=== PATIENT | female | born 1960 | race Caucasian/White ===

== ENCOUNTER 2019-06-09 15:32 | Emergency (ER) | payer OTHER ==
[~2019-06-09] VITALS: Ht 165.1 cm; Wt 97.5 kg
[2019-06-09] MEDS ORDERED: ASPIR 8181 MG ORAL (15:41)
--- NOTE | 2019-06-09 16:06 | Emergency Room Report ---
History of Present Illness General Chief Complaint: Chest Pain Source: Patient Present Illness HPI Disclaimer: Please note that this report is being documented using [employer] technology. This can lead to erroneous entry secondary to incorrect interpretation by the dictating instrument. HPI: 59-year-old female reported history of hypertension previous cardiac stent placement presents for chest pain, urinary frequency and diarrhea. Symptoms present for the past 2 to 3 days. Chest pain pain is pressure-like, nonradiating, about 8 out of 10. She denies fever or cough. She denies sick contacts. She has a history of coronary artery stent placement 3 years ago. She also complains of back pain that is bilateral in the flanks., And nonradiating. She denied dysuria but complained of urinary frequency as well. PMH: Hypertension, coronary artery disease PSH: Reviewed Social Hx: She denies smoking drinking or illicit drug use Allergies: Coded Allergies: No Known Allergies (Unverified , 06/09/19) COVID-19 Screening Contact w/high risk pt: No Recent Travel to affected area: No Experienced COVID-19 symptoms?: Yes COVID-19 symptoms experienced: Shortness of Breath Patient History Now: No : 1 Para: 1 Reviewed Nursing Documentation: PMH: Agreed; PSxH: Agreed Nursing Documentation-PMH Past Medical History: No History, Except For Hx Cardiac Problems: Yes - stent 2016 Review of Systems All Other Systems: negative except mentioned in HPI Physical Exam Vital Signs Date Time Temp Pulse Resp B/P (MAP) Pulse Ox O2 Delivery O2 Flow Rate FiO2 06/09/19 15:37 97.9 74 18 164/90 (114) 95 Room Air Sp02 EP Interpretation: reviewed, normal General Appearance: well appearing, no apparent distress Head: normocephalic, atraumatic Eyes: bilateral eye PERRL, bilateral eye EOMI ENT: hearing grossly normal, moist mucus membranes Neck: full range of motion, supple Respiratory: lungs clear, normal breath sounds, no rhonchi, no respiratory distress, no retraction, no wheezing Cardiovascular #1: normal peripheral pulses, regular rate, rhythm, no murmur Gastrointestinal: non tender, soft, non-distended, no guarding Genitourinary: CVA tenderness (R), CVA tenderness (L) Neurologic: alert, oriented x3, no focal defects Skin: normal color, warm/dry Medical Decision Making Diagnostic Impression: Primary Impression: Back pain Additional Impressions: UTI (urinary tract infection) Chest pain ER Course MDM: Patient presents for complaints of chest pain, shortness of breath, flank pain, urinary frequency and diarrhea. differential diagnosis: Differential included pneumonia viral syndrome ACS CHF UTI pyelonephritis to name a few Clinical course Patient placed on stretcher. 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 After initial history and physical I ordered labs, IV fluids, analgesics, and urinalysis. After pain control patient feeling improved. She does have a cardiac history. She was in no distress. Her troponin was negative. I would expect it to be positive at this time as her pain is been present for the past few days. Due to her cardiac history and history of hypertension I did recommend admission to the hospital for further observation. Now her EKG again had no ischemic changes with a negative troponin which makes ACS much less likely due to your history again I recommended admission to the hospital however patient declined admission. Due to current coronavirus situation patient did not wish to stay in the hospital and requested discharge home. She stated she would return for any worsening symptoms. Urinalysis with leukocytes and patient did complain of urinary frequency so my plan was to treat for UTI in addition to pain control. Labs -troponin normal, white blood cell count normal, urinalysis 1+ leukocytes On reevaluation: Patient's pain improved. No respiratory distress no vomiting Diagnosis -low back pain UTI, chest pain Stable and discharged to home with prescriptions. Followup with PMD. Return to ED if symptoms recur or worsen EKG Diagnostic Results Rate: normal Rhythm: NSR ST Segments: no acute changes Rhythm Strip Diag. Results EP Interpretation: yes Rate: 62 Rhythm: NSR Last Vital Signs Date Time Temp Pulse Resp B/P (MAP) Pulse Ox O2 Delivery O2 Flow Rate FiO2 06/09/19 15:37 97.9 74 18 164/90 (114) 95 Room Air Status: improved Disposition: HOME, SELF-CARE Condition: Stable Scripts Hydrocodone Bit/Acetaminophen 5-325* (NORCO 5-325 TABLET*) 1 Each Tablet 1 TAB ORAL Q6H PRN for FOR PAIN, #10 TAB 0 Refills Prov: Nelson Desai M.D. 06/09/19 Nitrofurantoin Monohyd/M-Cryst* (MACROBID 100 MG*) 100 Mg Capsule 100 MG ORAL EVERY 12 HOURS, #14 CAP Prov: Nelson Desai M.D. 06/09/19 Nelson Desai M.D. Jun 09, 2019 16:06
[2019-06-09 16:23] LABS: ANION GAP 10 mmol/L (5-15); BLOOD UREA NITROGEN 11 mg/dL (7-18); CALCIUM 9.6 MG/DL (8.5-10.1); CARBON DIOXIDE 29 MMOL/L (21-32); CHLORIDE 103 MMOL/L (98-107); CREATININE 0.7 MG/DL (0.55-1.30); POTASSIUM 3.7 MMOL/L (3.5-5.1); SODIUM 142 MMOL/L (136-145)
[2019-06-09 16:34] LABS: ALANINE AMINOTRANSFERASE 16 U/L (12-78); ALBUMIN/GLOBULIN RATIO 1.1 (1.0-2.7); ALKALINE PHOSPHATASE 57 U/L (46-116); ASPARTATE AMINO TRANSFERASE 7 U/L (15-37); BILIRUBIN,TOTAL 0.3 MG/DL (0.2-1.0)
[2019-06-09 16:42] VITALS: BP 162/91
[2019-06-09 16:42] LABS: BASOPHILS % (AUTO) 1.4 % (0.0-2.0); EOSINOPHILS % (AUTO) 1.1 % (0.0-3.0); HEMATOCRIT 45.5 % (37.0-47.0); HEMOGLOBIN 14.9 G/DL (12.0-16.0); LYMPHOCYTES % (AUTO) 28.1 % (20.0-45.0); MEAN CORPUSCULAR VOLUME 91 FL (80-99); MONOCYTES % (AUTO) 7.7 % (1.0-10.0); NEUTROPHILS % (AUTO) 61.7 % (45.0-75.0); PLATELET COUNT 266 K/UL (150-450); RED BLOOD COUNT 4.99 M/UL (4.20-5.40); RED CELL DISTRIBUTION WIDTH 13.2 % (11.6-14.8); WHITE BLOOD COUNT 8.4 K/UL (4.8-10.8)
[2019-06-09] MEDS ORDERED: Morphine Sulfate 4mg/ml Inj (IV USE ONLY) IVP ONE (17:15)
[2019-06-09 17:32] LABS: APPEARANCE,URINE CLEAR; BILIRUBIN, URINE NEGATIVE (NEGATIVE); COLOR,URINE PALE YELLOW; GLUCOSE, URINE (UA) NEGATIVE (NEGATIVE); KETONES,URINE NEGATIVE (NEGATIVE); LEUKOCYTE ESTERASE ,URINE 1+ (NEGATIVE); NITRITE,URINE NEGATIVE (NEGATIVE); PH,URINE 8 (4.5-8.0); PROTEIN,URINE NEGATIVE (NEGATIVE); UROBILINOGEN,URINE NORMAL MG/DL (0.0-1.0)
--- NOTE | 2019-06-09 17:45 | Diagnostic Imaging Report ---
History: SOB Exam: XR CXR 1 VIEW Comparison: None available FINDINGS: The lungs are clear. The cardiac and mediastinal contours are within limits. The visualized osseous structures appear within limits. IMPRESSION: No evidence of acute disease.
[2019-06-09] MEDS ORDERED: NORCO 5-325 TA1 EAC1 ORAL (18:06)
[2019-06-09] MEDS ORDERED: NITROFURANTOIN100 M2 ORAL (18:06)
[2019-06-09 18:10] VITALS: BP 161/89
== END 2019-06-09 18:10 | disposition home or self-care (01) ==
LOC: EMR 16:02
DX: M54.9 Dorsalgia, unspecified (principal); N39.0 Urinary tract infection, site not specified; R07.9 Chest pain, unspecified; I10 Essential (primary) hypertension; Z95.5 Presence of coronary angioplasty implant and graft; R06.02 Shortness of breath
CPT/HCPCS: 36415; 71045; 80053; 81003; 83880; 84484; 85025; 93005; 96374; J2270; Z7502; 99284